=== PATIENT | female | born 1940 | race Caucasian/White ===

== ENCOUNTER 2021-09-25 22:59 | Observation (INO) ==
[2021-09-25] MEDS ORDERED: Morphine Sulfate 2 MG/ML SYRINGE IVP ONE (23:07)
[2021-09-25] MEDS ORDERED: Ondansetron 4 MG/2 ML VIAL IVP ONE (23:07)
[2021-09-25 23:34] LABS: Basophils # 0.1 K/mcL (0.0-0.2); Eosinophils # 0.3 K/mcL (0.0-0.6); Eosinophils % 6.6 %; Hemoglobin 12.9 g/dL (11.5-15.4); Immature Granulocytes % 0.2 % (0-4); Lymphocytes # 1.7 K/mcL (0.6-4.6); Lymphocytes % 35.5 %; Mean Corpuscular HGB Conc 33.1 g/dL (31.6-35.5); Mean Corpuscular Volume 84.6 fL (83.0-100.0); Mean Platelet Volume 10.4 fL (9.4-12.4); Monocytes # 0.5 K/mcL (0.0-1.3); Monocytes % 9.9 %; Neutrophils # 2.3 K/mcL (1.6-8.9); Platelet Count 228 K/mcL (140-400); Red Blood Count 4.61 M/mcL (3.82-4.97); Red Cell Distribution Width 13.6 % (11.5-14.5); Segmented Neutrophils % 46.8 %; White Blood Count 4.8 K/mcL (4.3-11.1)
[2021-09-25 23:40] LABS: Prothrombin Time 11.6 Seconds (9.4-12.1)
[2021-09-25 23:50] LABS: BUN/Creatinine Ratio 15 (6-26); Blood Urea Nitrogen 14 mg/dL (8-23); Calcium 9.9 mg/dL (8.6-10.3); Carbon Dioxide 28 mEq/L (23-29); Chloride 99 mEq/L (98-107); Glucose 109 mg/dL (70-105); Osmolality,Calculated 279 (280-300); Potassium 3.5 mEq/L (3.5-5.1); Sodium 134 mEq/L (136-145); eGFR For African Americans > 60 (> 60); eGFR For Non-African Americans 56 (> 60)
[2021-09-25 23:51] LABS: Troponin I < 0.03 ng/mL (< 0.04)
[2021-09-26] MEDS ORDERED: Naloxone 0.4 MG/ML INJ IVP PRN (00:47)
[2021-09-26] MEDS ORDERED: Ondansetron ODT 4 MG TAB.RAPDIS SL PRN (00:47)
[2021-09-26] MEDS ORDERED: Melatonin 3 MG TABLET PO PRN (00:47)
[2021-09-26] MEDS ORDERED: 0.9 % Sodium Chloride 1,000 ML IVC SCH (01:00)
[2021-09-26] MEDS ORDERED: Regadenoson 0.4 MG/5 ML SYRINGE IVP ONE (11:26)
[2021-09-26 18:23] VITALS: O2SAT 96
[2021-09-26 19:20] VITALS: BP 153/83; PULSE 81; RESP 15; TEMP 97.8
== END 2021-09-26 22:35 | disposition short-term general hospital (02) ==
LOC: EMEROOGRE 22:59 → INPGRE 22:59
PROVIDERS: ADMIT Internal Medicine; ATTEND Family Medicine